=== PATIENT | female | born 1985 | race Caucasian/White ===

== ENCOUNTER 2023-06-09 14:01 | Outpatient (CLI) | payer OTHER ==
[2023-06-09 15:08] LABS: Hematocrit 39.8 % (34.9-44.5); Hemoglobin 13.8 g/dL (12.0-15.5); Mean Corpuscular HGB CONC 34.7 g/dL (32.0-36.0); Mean Corpuscular Hemoglobin 30.7 pg (27.0-33.0); Mean Corpuscular Volume 88.4 fl (81.6-98.3); Mean Platelet Volume 10.2 fl (7.4-10.4); Platelet Count 397 10x3/uL (150-450); White Blood Cell (WBC) Count 11.3 10x3/uL (3.5-10.5)
[2023-06-09 15:28] LABS: BHCG - Serum Negative (NEGATIVE); Pregs Control Background? CLEAR/WHITE (CLR/WHITE); Pregs Control Bar Appear? YES (CONTROL BAR)
[2023-06-09 15:35] LABS: Anion Gap 9 mmol/L (10-20); BUN (Urea Nitrogen) 10 mg/dL (7.0-18.7); Calc. Creatinine Clearance 0 mL/min (70-130); Calcium 9.6 mg/dL (7.8-10.44); Carbon Dioxide 25 mmol/L (22-29); Chloride 109 mmol/L (98-107); Estimated GFR 101; Glucose 114 mg/dL (70-105); Potassium 4.1 mmol/L (3.5-5.1); Sodium 139 mmol/L (136-145)
== END 2023-06-09 14:02 | disposition home or self-care (01) ==
LOC: LABBT 14:01
PROVIDERS: ATTEND Orthopaedic Surgery
DX: Z01.818 Encounter for other preprocedural examination (principal); M20.11 Hallux valgus (acquired), right foot
CPT/HCPCS: 80048; 84703; 85027; 93005; 93010

== ENCOUNTER 2024-01-25 10:25 | Day surgery (SDC) | payer OTHER ==
[2024-01-24 11:14] VITALS: BMI 38.0
[2024-01-25 11:01] LABS: #Basophils 0.07 10x3/uL (0.0-0.2); %Basophils 0.7 % (0.0-1.0); %Eosinophils 4.2 % (0.0-10.0); %Lymphocytes 24.7 % (21.0-51.0); %Neutrophils 63.2 % (42.0-75.0); Hematocrit 38.4 % (36.0-47.0); Hemoglobin 12.8 g/dL (12.0-16.0); Mean Corpuscular HGB CONC 33.3 g/dL (32.0-36.0); Mean Corpuscular Hemoglobin 29.4 pg (27.0-31.0); Mean Corpuscular Volume 88.3 fL (78.0-98.0); Mean Platelet Volume 9.6 fL (7.4-10.4); Platelet Count 360 10x3/uL (130-400); RBC Distribution Width 12.1 % (11.5-14.5); Red Blood Cell (RBC) Count 4.35 mill/uL (4.20-5.40)
[2024-01-25] MEDS ORDERED: Vancomycin 1 GM/200 ML (FROZEN) BAG ONE (11:02)
[2024-01-25] MEDS ORDERED: EPINEPHrine 1 MG/ML VIAL ONE (11:13)
[2024-01-25] MEDS ORDERED: CEFAZOLIN 2 GM VIAL ONE (11:14)
[2024-01-25] MEDS ORDERED: Bupivacaine PF 0.5% 30 ML VIAL ONE (11:14)
[2024-01-25] MEDS ORDERED: Ondansetron PF 4 MG/2 ML Vial ONE (12:03)
[2024-01-25] MEDS ORDERED: PROPOFOL 20 ML ONE (12:03)
[2024-01-25] MEDS ORDERED: fentaNYL PF 100 MCG/2 ML SYRINGE ONE (12:03)
[2024-01-25] MEDS ORDERED: Dexamethasone 4 mg/ml Vial ONE (12:03)
[2024-01-25] MEDS ORDERED: fentaNYL 50 mcg/mL 1 mL Vial ONE ×2 (12:15→13:25)
[2024-01-25] MEDS ORDERED: Midazolam HCl 2 mg/2 ml Vial ONE (12:15)
[2024-01-25] MEDS ORDERED: Meperidine HCl/PF 25 MG (1 mL) VIAL ONE (13:59)
[2024-01-25] MEDS ORDERED: Fentanyl 250 MCG/5 ML VIAL ONE (13:59)
[2024-01-25] MEDS ORDERED: Ketorolac Tromethamine 30 MG (1 mL) VIAL ONE (14:10)
[2024-01-25] MEDS ORDERED: HYDROmorphone 0.5 MG/0.5 ML SYRINGE ONE (14:37)
[2024-01-25] MEDS ORDERED: HYDROcodone/Acetaminophen 5/325 mg Tablet ONE (15:19)
== END 2024-01-25 15:55 | disposition home or self-care (01) ==
LOC: SDC 10:25
PROVIDERS: ATTEND Orthopaedic Surgery Sports Medicine
DX: S83.512A Sprain of anterior cruciate ligament of left knee, initial encounter (principal)
CPT/HCPCS: 85025; C1713; J0171; J0665; J1100; J1885; J2175; J2250; J2405; J2704; J3010; J3370-JW